=== PATIENT | male | born 1985 ===

== ENCOUNTER 2018-01-17 14:56 | Emergency (ER) | payer BC ==
[2018-01-17] MEDS ORDERED: Tdap Vaccine 0.5 ml Vial (10-64 yrs) IM ONE ×2 (15:17→15:23)
[2018-01-17] MEDS ORDERED: Clindamycin 600mg/50ml NS 600 MG/50 ML BAG IVPB ONE ×2 (15:25→16:00)
--- NOTE | 2018-01-17 15:37 | C.PDOC ---
History Of Present Illness 32 year old male presents to the ED for evaluation after he sustained a dog bite to his left forearm earlier today. Patient states he was trying to break up a fight between two dogs when his dog accidentally bit him. Patient states his dog is UTD with immunizations. Patient is not UTD with Tetanus immunization. He reports pain, swelling and active bleeding from the site. Patient denies any other injuries at this time. Time Seen by Provider: 01/17/18 15:02 Chief Complaint (Nursing): Bite History Per: Patient History/Exam Limitations: no limitations Onset/Duration Of Symptoms: Hrs Current Symptoms Are (Timing): Still Present Location Of Injury: Left: Forearm Quality Of Symptoms: Painful Additional History Per: Patient - Animal Bite Description Of The Attack: Approached Animal Description Of The Animal: Family Pet Reports Animal Appears: Well Reports Animal's Immunization Status: UTD Past Medical History Reviewed: Historical Data, Nursing Documentation, Vital Signs Vital Signs: Last Vital Signs Temp 98.1 F 01/17/18 16:17 Pulse 80 01/17/18 16:17 Resp 16 01/17/18 16:17 BP 118/77 01/17/18 16:17 Pulse Ox 100 01/17/18 22:53 - Medical History PMH: No Chronic Diseases Family History: States: Unknown Family Hx - Social History Hx Alcohol Use: No Hx Substance Use: No - Immunization History Hx Tetanus Toxoid Vaccination: No Hx Influenza Vaccination: No Hx Pneumococcal Vaccination: No Review Of Systems Skin: Positive for: Other (dog bite to left forearm ) Physical Exam - Physical Exam Appears: Non-toxic, No Acute Distress Skin: Normal Color, Warm, Dry, Other (three puncture wounds to left forearm, at the site of elbow with significant hematoma and some active bleeding ) Extremity: Normal ROM, Capillary Refill (less than 2 seconds ) Pulses: Left Radial: Normal Neurological/Psych: Oriented x3, Normal Speech, Normal Cognition, Normal Sensation ED Course And Treatment O2 Sat by Pulse Oximetry: 100 (on RA) Pulse Ox Interpretation: Normal - Other Rad left elbow XR X-Ray: Interpreted by Me, Viewed By Me, Read By Radiologist Interpretation: PROCEDURE: Radiographs of the left elbow. HISTORY: animal bite. COMPARISON: No prior. FINDINGS: BONES: No acute fracture or destructive bony lesion identified. JOINTS: No subluxation or dislocation. No osteoarthritis. SOFT TISSUES: Emphysematous changes are scattered throughout the mid to distal lateral elbow soft tissues. Clinically correlate with timeframe of the animal bite here because unless or multiple bite, consideration of abscess or prominent cellulitis should be made. No retained radiodense foreign body appreciable. JOINT EFFUSION: None. OTHER FINDINGS: None. IMPRESSION: Unremarkable left elbow skeletal pattern. Findings suspicious for either multiple lacerations rib related to numerous foci of emphysema at the lateral mid and distal left elbow soft tissues versus infectious process. Clinically correlate further. Medical Decision Making Medical Decision Making: Impression: 32 y/o male with dog bite to left forearm Plan: * left elbow XR * Tetanus IM * Clindamycin IVP * reassess and disposition Progress: Left elbow XR ordered and reviewed. Tetanus IM and Clindamycin IVP administered. Wound was cleaned with normal saline and dressing applied. On re-exam, patient is resting comfortably, showing no signs of distress and is stable for discharge. Patient is given wound care instructions and advised to f/u with his PMD/clinic or the ED in 3 days for wound check. Advised to return to the ED immeditely if symptoms worsen. Disposition Counseled Patient/Family Regarding: Studies Performed, Diagnosis, Need For Followup, Rx Given - Disposition Referrals: Jun Myers MD [Staff Provider] - Disposition: HOME/ ROUTINE Disposition Time: 15:36 Condition: STABLE Additional Instructions: Keep area clean and dry for next 2 days. Take antibiotics as indicated. Return to the Emergency Department if you notice significant redness, pus drainage, red striking. Follow up with your doctor or the ED for wound check in 3 days. Prescriptions: Amoxicillin/Clavulanate [Augmentin 875 MG-125 MG] 1 tab PO BID #14 tab Instructions: Animal Bites (DC) Forms: General Discharge Instructions, [facility] (Pashto), Work Excuse - POA Present On Arrival: None - Clinical Impression Clinical Impression: Animal bite wound - Scribe Statement The provider has reviewed the documentation as recorded by the Scribe (Alberta Bryant) Provider Attestation: All medical record entries made by the Scribe were at my direction and personally dictated by me. I have reviewed the chart and agree that the record accurately reflects my personal performance of the history, physical exam, medical decision making, and the department course for this patient. I have also personally directed, reviewed, and agree with the discharge instructions and disposition.
--- NOTE | 2018-01-17 15:53 | RAD ---
PROCEDURE: Radiographs of the left elbow. HISTORY: animal bite COMPARISON: No prior. FINDINGS: BONES: No acute fracture or destructive bony lesion identified. JOINTS: No subluxation or dislocation. No osteoarthritis. SOFT TISSUES: Emphysematous changes are scattered throughout the mid to distal lateral elbow soft tissues. Clinically correlate with timeframe of the animal bite here because unless or multiple bite, consideration of abscess or prominent cellulitis should be made. No retained radiodense foreign body appreciable. JOINT EFFUSION: None. OTHER FINDINGS: None IMPRESSION: Unremarkable left elbow skeletal pattern. Findings suspicious for either multiple lacerations rib related to numerous foci of emphysema at the lateral mid and distal left elbow soft tissues versus infectious process. Clinically correlate further.
[2018-01-17 17:07] VITALS: BP 118/77; PULSE 80; RESP 16; TEMP 98.1
[2018-01-17 22:49] VITALS: O2SAT 100
== END 2018-01-17 16:18 | disposition home or self-care (01) ==
LOC: C.ER 14:56
DX: S51.832A Puncture wound without foreign body of left forearm, initial encounter (principal); W54.0XXA Bitten by dog, initial encounter